=== PATIENT | male | born 1965 | race Caucasian/White ===

== ENCOUNTER 2018-06-23 16:09 | Emergency (ER) | payer OTHER ==
[~2018-06-23] VITALS: Ht 185.4 cm; Wt 151.9 kg
[~2018-06-23 16:09] MED LIST: ALBU90OI6 PO; ALIS150T PO; AMLO10 PO; ASPI325; ASPI325 PO; BETA.05TC TOP; BISA5EC PO; BUME2 PO; CARV25 PO; CEPH500 PO; CLON.2; CLON.2 PO; CLON.3 PO; CODGUAEL PO; Cleocin HCl150 MG PO; Cleocin HCl300 MG PO; DOCU100 PO; EDARBI; FURO40 PO; HYDACE5 PO; HYDR10 PO; HYDR1TAB94; HYDR1TAB94 PO; Isosorbide Mono60 MG PO; KETO10 PO; LAVAP17G PO; NAPR500 PO; NICO14TP TOP; Norco 10-325 T1 EACH PO; OLME20; OXYACE5T PO; PANT40 PO; PENVK500 PO; POTA10T PO; PREG75 PO; PROACE100 PO; PROP20 PO; Percocet 10-321 EACH PO; RAMI5; RXHYD5325 PO; RXPROACE PO; SPIR25 PO; SULTRIDS PO; [UNRECOGNIZED DRUG - REMARK]
[2018-06-23 17:46] LABS: BASOPHILS ABSOLUTE AUTO 0.04 K/mm3 (0.00-0.23); BASOPHILS PERCENT AUTO 0 % (0-2); EOSINOPHILS ABSOLUTE AUTO 0.18 K/mm3 (0.00-0.68); EOSINOPHILS PERCENT AUTO 1 % (0-6); Hematocrit 52.3 % (37.0-53.0); Hemoglobin 17.3 g/dL (13.5-17.5); IMMATURE GRAN ABSOLUTE AUTO 0.06 K/mm3 (0.00-0.10); IMMATURE GRAN PERCENT AUTO 0 % (0-1); LYMPHOCYTES ABSOLUTE AUTO 1.54 K/mm3 (0.84-5.20); LYMPHOCYTES PERCENT AUTO 11 % (21-46); MONOCYTES PERCENT AUTO 12 % (4-13); Mean Corpuscular HGB Conc 33.1 g/dL (31.5-36.5); Mean Corpuscular Volume 94 fL (80-100); Mean Platelet Volume 12.2 fL (9.1-12.4); NEUTROPHILS ABSOLUTE AUTO 11.16 K/mm3 (1.96-9.15); NEUTROPHILS PERCENT AUTO 76 % (41-73); Platelet Count 211 K/mm3 (150-400); RDW Coefficient Variation 12.9 % (11.7-14.2); RDW Standard Deviation 44.5 fL (35.1-46.3); Red Blood Cell Count 5.58 M/mm3 (4.30-5.90); White Blood Cell Count 14.68 K/mm3 (4.00-11.30)
[2018-06-23 18:03] LABS: Alanine Aminotransfer (ALT/SGP 22 U/L (12-78); Albumin, Blood 3.5 g/dL (3.4-5.0); Albumin/Globulin Ratio 0.8 (0.8-1.8); Alk Phos 96 U/L (50-136); Anion Gap 8 mmol/L (6-16); Aspartate Aminotrans (AST/SGOT 16 U/L (12-37); Bilirubin, Total 0.7 mg/dL (0.1-1.0); Blood Urea Nitrogen 10 mg/dL (8-24); Bun/Creatinine Ratio 7.4 (12.0-20.0); CO2, Blood 24 mmol/L (21-32); Chloride, Blood 104 mmol/L (98-108); Creatinine, Blood 1.35 mg/dL (0.60-1.20); Globulin, Blood 4.2 g/dL (2.2-4.0); Glomerular Filtration Rate 59 (60-); Glucose, Blood 110 mg/dL (70-99); Sodium, Blood 136 mmol/L (136-145); Total Protein, Blood 7.7 g/dL (6.4-8.2); Troponin I <0.015 ng/mL (0.000-0.040)
[2018-06-23] MEDS ORDERED: HYDR1TAB94 PO (19:36)
[2018-06-23 20:04] LABS: International Normalized Ratio 2.28; Prothrombin Time Results 22.4 Sec (9.7-11.5)
== END 2018-06-23 19:44 | disposition home or self-care (01) ==
LOC: ER 16:09
PROVIDERS: Physician Assistant
DX: R07.81 Pleurodynia (principal); Z79.899 Other long term (current) drug therapy; Z79.82 Long term (current) use of aspirin; I11.0 Hypertensive heart disease with heart failure; I50.9 Heart failure, unspecified; I48.91 Unspecified atrial fibrillation; F17.210 Nicotine dependence, cigarettes, uncomplicated
CPT/HCPCS: 36415; 71046; 80053; 84484; 85025; 85610; 93005; 93010; 96372; 99284-25; J1885

== ENCOUNTER 2018-07-04 23:33 | Observation (INO) | payer OTHER ==
[~2018-07-04] VITALS: Ht 185.4 cm; Wt 130.2 kg
[2018-07-05 01:38] LABS: Source, Urine Clean Catch
[2018-07-05 01:40] LABS: Bilirubin, Urine Neg (Neg); Blood, Urine Neg (Neg); Glucose Qualitative, Urine Neg (Neg); Ketones, Urine Neg (Neg); Leukocyte Esterase, Urine Neg (Neg); Nitrite, Urine Neg (Neg); Protein, Urine 1+ (Neg); Urobilinogen, Urine NORM (Normal)
[2018-07-05 01:44] LABS: Appearance, Urine Clear (Clear); Color, Urine Yellow (P-Yellow)
[2018-07-05 01:50] LABS: BASOPHILS ABSOLUTE AUTO 0.06 K/mm3 (0.00-0.23); BASOPHILS PERCENT AUTO 1 % (0-2); EOSINOPHILS ABSOLUTE AUTO 0.37 K/mm3 (0.00-0.68); EOSINOPHILS PERCENT AUTO 3 % (0-6); Hematocrit 52.7 % (37.0-53.0); Hemoglobin 17.6 g/dL (13.5-17.5); IMMATURE GRAN ABSOLUTE AUTO 0.14 K/mm3 (0.00-0.10); IMMATURE GRAN PERCENT AUTO 1 % (0-1); LYMPHOCYTES ABSOLUTE AUTO 2.49 K/mm3 (0.84-5.20); LYMPHOCYTES PERCENT AUTO 19 % (21-46); MONOCYTES ABSOLUTE AUTO 1.09 K/mm3 (0.16-1.47); MONOCYTES PERCENT AUTO 8 % (4-13); Mean Corpuscular HGB 30.8 pg (26.0-34.0); Mean Corpuscular HGB Conc 33.4 g/dL (31.5-36.5); Mean Corpuscular Volume 92 fL (80-100); NEUTROPHILS ABSOLUTE AUTO 8.95 K/mm3 (1.96-9.15); NEUTROPHILS PERCENT AUTO 68 % (41-73); Platelet Count 227 K/mm3 (150-400); RDW Standard Deviation 43.8 fL (35.1-46.3); Red Blood Cell Count 5.72 M/mm3 (4.30-5.90)
[2018-07-05 01:51] LABS: U Amphetamine Screen Not Detected; U Barbituate Screen Not Detected; U Benzodiazapine Screen DETECTED; U Buprenorphine Screen Not Detected; U Cannabinoids Screen Not Detected; U Cocaine Screen Not Detected; U Methadone Screen Not Detected; U Methamphetamine Screen Not Detected; U Opiates Screen Not Detected; U Oxycodone Screen Not Detected; U Phencyclidine Screen Not Detected; U Propoxyphene Screen Not Detected
[2018-07-05 01:53] LABS: Alanine Aminotransfer (ALT/SGP 23 U/L (12-78); Albumin, Blood 3.4 g/dL (3.4-5.0); Albumin/Globulin Ratio 0.8 (0.8-1.8); Alk Phos 114 U/L (50-136); Anion Gap 11 mmol/L (6-16); Aspartate Aminotrans (AST/SGOT 28 U/L (12-37); Bilirubin, Total 0.2 mg/dL (0.1-1.0); Blood Urea Nitrogen 17 mg/dL (8-24); Bun/Creatinine Ratio 16.3 (12.0-20.0); CO2, Blood 22 mmol/L (21-32); Calcium, Blood 8.7 mg/dL (8.5-10.1); Chloride, Blood 104 mmol/L (98-108); Creatinine, Blood 1.04 mg/dL (0.60-1.20); Ethanol (Alcohol), Blood, Med 146 mg/dL; Globulin, Blood 4.3 g/dL (2.2-4.0); Glomerular Filtration Rate >60 (60-); Glucose, Blood 111 mg/dL (70-99); Potassium, Blood 4.1 mmol/L (3.5-5.5); Salicylate 2.4 mg/dL (2.8-20.0); Sodium, Blood 137 mmol/L (136-145); Total Protein, Blood 7.7 g/dL (6.4-8.2)
[2018-07-05 01:57] LABS: Acetaminophen, Random <2.0 ug/mL (10.0-30.0)
[2018-07-05] MEDS ORDERED: FURO80 PO (10:16)
[2018-07-05] MEDS ORDERED: TRAM50 PO (10:16)
== END 2018-07-05 10:46 | disposition home or self-care (01) ==
LOC: ER 23:33 → EOR 07-05 02:40
PROVIDERS: ADMIT Emergency Medicine
DX: R45.851 Suicidal ideations (principal); F10.129 Alcohol abuse with intoxication, unspecified; F43.10 Post-traumatic stress disorder, unspecified; I11.0 Hypertensive heart disease with heart failure; I50.9 Heart failure, unspecified; F17.210 Nicotine dependence, cigarettes, uncomplicated; Z79.899 Other long term (current) drug therapy
CPT/HCPCS: 36415; 80053; 84443; 85025; 96372; 99285-25; G0378; G0480; J1200; J1630; J2060

== ENCOUNTER → 2019-01-23 | Outpatient (CLI) | payer MEDICARE, OTHER ==
[~2019-01-23] MED LIST changes: +FURO80 PO; +TRAM50 PO
[2019-01-23 16:09] LABS: Percent Saturation 29.9 % (20.0-50.0)
== END | disposition home or self-care (01) ==
LOC: LAB 13:09 → LAB SHORT 13:09
PROVIDERS: Internal Medicine Hematology & Oncology
DX: I73.1 Thromboangiitis obliterans [Buerger's disease] (principal); D75.1 Secondary polycythemia; K92.1 Melena
CPT/HCPCS: 83540; 83550

== ENCOUNTER → 2019-05-03 | Outpatient (CLI) | payer MEDICARE, OTHER ==
[2019-05-03 15:01] LABS: International Normalized Ratio 1.38; Prothrombin Time Results 14.5 Sec (9.7-11.5)
== END | disposition home or self-care (01) ==
LOC: LAB SHORT 13:16 → LAB 13:16
PROVIDERS: Internal Medicine Hematology & Oncology
DX: I11.9 Hypertensive heart disease without heart failure (principal); I48.0 Paroxysmal atrial fibrillation; D75.1 Secondary polycythemia; I73.1 Thromboangiitis obliterans [Buerger's disease]
CPT/HCPCS: 85610

== ENCOUNTER 2019-11-26 03:22 | Inpatient (IN) | payer MEDICARE, OTHER ==
[~2019-11-26] VITALS: Ht 182.9 cm; Wt 123.0 kg
[2019-11-26 03:37] LABS: BASOPHILS ABSOLUTE AUTO 0.04 K/mm3 (0.00-0.23); BASOPHILS PERCENT AUTO 0 % (0-2); EOSINOPHILS ABSOLUTE AUTO 0.26 K/mm3 (0.00-0.68); EOSINOPHILS PERCENT AUTO 2 % (0-6); Hematocrit 49.3 % (37.0-53.0); Hemoglobin 16.9 g/dL (13.5-17.5); IMMATURE GRAN ABSOLUTE AUTO 0.05 K/mm3 (0.00-0.10); IMMATURE GRAN PERCENT AUTO 0 % (0-1); LYMPHOCYTES ABSOLUTE AUTO 1.67 K/mm3 (0.84-5.20); LYMPHOCYTES PERCENT AUTO 14 % (21-46); MONOCYTES ABSOLUTE AUTO 1.01 K/mm3 (0.16-1.47); MONOCYTES PERCENT AUTO 9 % (4-13); Mean Corpuscular HGB 31.2 pg (26.0-34.0); Mean Corpuscular HGB Conc 34.3 g/dL (31.5-36.5); Mean Corpuscular Volume 91 fL (80-100); Mean Platelet Volume 12.4 fL (9.1-12.4); NEUTROPHILS ABSOLUTE AUTO 8.81 K/mm3 (1.96-9.15); NEUTROPHILS PERCENT AUTO 75 % (41-73); Platelet Count 188 K/mm3 (150-400); RDW Coefficient Variation 14.2 % (11.7-14.2); RDW Standard Deviation 47.4 fL (35.1-46.3); Red Blood Cell Count 5.42 M/mm3 (4.30-5.90); White Blood Cell Count 11.84 K/mm3 (4.00-11.30)
[2019-11-26 03:40] LABS: Calcium, Ionized (POC) 1.11 mmol/L (1.10-1.46); Chloride (POC) 99 mmol/L (98-108); Glucose (ISTAT POC) 135 mg/dL (70-99); Potassium (POC) 2.9 mmol/L (3.5-5.5); Sodium (POC) 141 mmol/L (135-148); Total CO2 (POC) 31 mmol/L (21-32)
[2019-11-26 03:52] LABS: International Normalized Ratio 1.04; Prothrombin Time Results 11.1 Sec (9.7-11.5)
[2019-11-26 04:25] LABS: Alanine Aminotransfer (ALT/SGP 17 U/L (12-78); Albumin, Blood 3.1 g/dL (3.4-5.0); Albumin/Globulin Ratio 0.7 (0.8-1.8); Alk Phos 85 U/L (50-136); Anion Gap 6 mmol/L (6-16); Aspartate Aminotrans (AST/SGOT 28 U/L (12-37); Blood Urea Nitrogen 13 mg/dL (8-24); Bun/Creatinine Ratio 14.2 (12.0-20.0); CO2, Blood 30 mmol/L (21-32); Calcium, Blood 9.2 mg/dL (8.5-10.1); Chloride, Blood 104 mmol/L (98-108); Creatinine, Blood 0.92 mg/dL (0.60-1.20); Globulin, Blood 4.2 g/dL (2.2-4.0); Glomerular Filtration Rate >60 (60-); Glucose, Blood 129 mg/dL (70-99); Sodium, Blood 140 mmol/L (136-145); Total Protein, Blood 7.3 g/dL (6.4-8.2)
--- NOTE | 2019-11-26 07:30 | NUR ---
ASSUMED CARE OF PT @0700, REPORT FROM MARIALUISA OBRIEN. PT ADMITTED FOR A CVA. ARRIVES INTUBATED AND SEDATED. VENT SETTINGS AC:16/500/60. FENTANYLY GTT @50MCG/HR. VERSED 7MG/HR. PT AGITATED, PULLING ON RESTRAINTS. MOVEMENT ABSENT ON RIGHT SIDE, NORMAL STRENGTH ON LEFT. PT RESPONDS TO PAINFUL STIMULI, NOT FOLLOWING COMMANDS. WITHDRAWLS FROM CARE. PUPILS 2MM, EQUAL AND REACTIVE, BILATERAL LEFT UPWARD GAZE. COUGH AND GAG REFLEX PRESENT. A-FLUTTER ON THE MONITOR IN THE 80'S-90'S. WILL ADDRESS SEDATION W/ CATTLE BROKER. LS COARSE ON R, CLEAR ON LEFT. OGT LIS. SCANT, BROWN EMESIS OUT. KERR CATHETER PATENT AND DRAINING TO GRAVITY. CLEAR YELLOW URINE OUT. WILL ADDRESS BP W/CATTLE BROKER. WILL CONTINUE TO MONITOR.
--- NOTE | 2019-11-26 07:35 | NUR ---
pt up to icu 13 from ed via gurney. will get pt settled and give report to oncoming rn
[2019-11-26 09:20] LABS: CHOL/HDL RATIO 6.7; Cholesterol 181 mg/dL (50-200); HDL Cholesterol 27 mg/dL (>39); LDL/HDL RATIO 4.5; Low Density Lipoprotein Chol 120 mg/dL (0-110); Triglycerides 168 mg/dL (30-160); Very Low Density Lipoprot Chol 33 mg/dL (6-32)
--- NOTE | 2019-11-26 12:45 | NUR ---
eCHOCARDIOGRAM USING 9.0ML OF AGITATED SALINE CONTRAST PERFORMED.
--- NOTE | 2019-11-26 14:08 | NUR ---
Review of pt with staff. his girlfriend is calling his partner and attemtping to find son. Will follow up with her. google search show possible criminal record and facebook page no family found on social media. Will follow up with myke if family not found.
--- NOTE | 2019-11-26 16:26 | NUR ---
met with his girlfreind to review his needs and prognosis. Review o CVA and rehab and the possible differnet trajectories. She stated she had no idea she though he would just hopefully get better and they would talke all the machines off of him. She called his son he spoke with his sone last week and she is hopsing he will call her and be decision maker. She states the best person is his ex gilfriend of many years who knows him best. advised her that if no one will accept being a decision maker we will do an ethic consult for phsycian support in cdecision making. Encouraged her to rally the troops and get them to sep up. offered and help I could.
--- NOTE | 2019-11-26 18:33 | NUR ---
SHIFT SUMMARY PT CONTINUES TO BE RESPONSIVE TO PAINFUL STIMULI ONLY, NOT FOLLOWING COMMANDS. WITHDRAWLS FROM CARE, BUT LESS AGITATED. PUPILS 2MM, EQUAL AND REACTIVE. VENT SETTINGS AC:16/500/30. LSC BUT DIMINISHED IN THE LL BILATERALLY. FENTANYL AND VERSED DC'D, PRECEDEX TITRATION INITIATED PER PROTOCOL. A-FLUTTER ON THE MONITOR IN THE 70'S-90'S. VHP INITIATED @20ML/HR. FRIEDA (GABRIELA) @ BEDSIDE TODAY. PALLIATIVE CARE CONTACTED ESTRANGED DAUGHTER AND SON, BOTH ADDED TO RELEASE OF INFORMATION LIST c CODE WORD PER RAVIN IN PALLIATIVE. VSS, WILL CONTINUE TO MONITOR. WILL REPORT TO ONCOMING NURSE.
--- NOTE | 2019-11-26 20:00 | NUR ---
ASSESSMENT/ASSUMED CARE PT INTUBATED AND ON MECH VENT. PT MOVING LEFT HAND/ARM AND LEFT FOOT. RIGHT SIDE FLACCID. PT NOT FOLLOWING INSTRUCTIONS. LUNGS COARSE AND DECREASED IN THE BASES. SUCTIONED WHITE SRECTIONS VIA ET TUBE. LUNGS THAN CLEAR AND DECREASED IN THE BASES. HEART RATE IRREGULAR. BP STABLE. BT+ ABD SOFT. OG WITH TUBE FEED VITAL HP AT 20 ML/HR RESIDUAL ZERO. INCREASED TUBE FEED TO 30 ML/HR. WATER FLUSHING 30 ML Q4HR. IV 18G TO LEFT AC AND 18G TO LEFT HAND SALINE LOCKED, BOTH SITES CLEAR AND FLUSHED WITHOUT DIFFICULTY. IV 20G TO RIGHT FOREARM WITH PRECEDEX AT 0.5 MCQ/KG/HR. KERR CATH PATENT DRAINING GISELA YELLOW URINE. BILAT SOFT WRIST RESTRAINTS ON AND LEFT ANKLE RESTRAINT ON. ORAL CARE DONE AND PT REPOSITIONED.
--- NOTE | 2019-11-26 23:15 | NUR ---
VENT CHANGE PT VENT SETTINGS CHANGED TO PS 5 PEEP 5 DUE TO ASYNCHRONOUS RESP BY RT. PT TOLERATING WELL. INCREASED TV NOTED WITH PS. DR COLLINS NOTIED AND AGREED WITH CHANGES
--- NOTE | 2019-11-27 00:54 | NUR ---
TEMP TEMP UP TO 101.1. FAN ON PT, BLANKETS REMOVED, ICE PACKS BEHIND NECK, UNDERARMS AND IN GROIN.
[2019-11-27 03:41] LABS: BASOPHILS ABSOLUTE AUTO 0.03 K/mm3 (0.00-0.23); BASOPHILS PERCENT AUTO 0 % (0-2); EOSINOPHILS ABSOLUTE AUTO 0.03 K/mm3 (0.00-0.68); EOSINOPHILS PERCENT AUTO 0 % (0-6); Hematocrit 49.6 % (37.0-53.0); Hemoglobin 16.3 g/dL (13.5-17.5); IMMATURE GRAN ABSOLUTE AUTO 0.05 K/mm3 (0.00-0.10); IMMATURE GRAN PERCENT AUTO 0 % (0-1); LYMPHOCYTES ABSOLUTE AUTO 1.16 K/mm3 (0.84-5.20); LYMPHOCYTES PERCENT AUTO 8 % (21-46); MONOCYTES ABSOLUTE AUTO 1.41 K/mm3 (0.16-1.47); MONOCYTES PERCENT AUTO 10 % (4-13); Mean Corpuscular HGB 30.5 pg (26.0-34.0); Mean Corpuscular HGB Conc 32.9 g/dL (31.5-36.5); Mean Corpuscular Volume 93 fL (80-100); Mean Platelet Volume 12.7 fL (9.1-12.4); NEUTROPHILS ABSOLUTE AUTO 11.94 K/mm3 (1.96-9.15); NEUTROPHILS PERCENT AUTO 82 % (41-73); Platelet Count 156 K/mm3 (150-400); RDW Coefficient Variation 14.2 % (11.7-14.2); RDW Standard Deviation 48.7 fL (35.1-46.3); Red Blood Cell Count 5.35 M/mm3 (4.30-5.90); White Blood Cell Count 14.62 K/mm3 (4.00-11.30)
[2019-11-27 04:01] LABS: Anion Gap 6 mmol/L (6-16); Blood Urea Nitrogen 17 mg/dL (8-24); Bun/Creatinine Ratio 14.3 (12.0-20.0); CO2, Blood 29 mmol/L (21-32); Calcium, Blood 9.1 mg/dL (8.5-10.1); Chloride, Blood 110 mmol/L (98-108); Creatinine, Blood 1.19 mg/dL (0.60-1.20); Glomerular Filtration Rate >60 (60-); Glucose, Blood 124 mg/dL (70-99); Phosphorus, Blood 2.4 mg/dL (2.5-4.9); Potassium, Blood 3.1 mmol/L (3.5-5.5); Sodium, Blood 145 mmol/L (136-145)
--- NOTE | 2019-11-27 05:49 | NUR ---
SGIFT SUMMARY PT CONT INTUBATED AND ON [facility] VENT. VENT SETTINGS CHANGED DURING THE NIGHT TO PC 5 PEEP 5 FIO2 30%. LUNGS COARSE UNTIL SUCTIONED VIA ET TUBE THAN CLEAR AND DECREASED IN THE BASES. HEART RATE CONT IRREGULAR-AFIB. BP STABLE. PT OPENING EYES TO VERBAL STIMULI AND MOVING LEFT ARM AND LEFT WITH REPOSITONING. RIGHT SIDE CONT FLACCID. OG WITH TUBE FEED. RESIDUALS ZERO. INCREASED TUBE FEED UP TO 40 ML/HR DURING THE NIGHT. TURNING Q2HR. TEMP 101.1, MED WITH TYLENOL, ICE PACKS TO BACK OF NECK, UNDER ARMS AND IN GROIN, BLANKETS REMOVED AND FAN ON. NO CHANGE TO TEMP. BILAT SOFT WRIST RESTRAINTS AND LEFT ANKLE RESTRAINT ON. PT NOT FOLLOWING INSTRUCTIONS. REPORT TO ON COMING NURSE
--- NOTE | 2019-11-27 08:00 | NUR ---
Received report from Andie OBRIEN. Patient sedated and intubated in bed and HOB 30 degrees. He is able to follow commands to left side and no movement to right. He is intubated with 8.0 ET and 26 cm at lips, his settings are Spon. mode PS 5, FiO2 30%, PEEP 5.0 and sats 95%. He has three IV's : 18ga LH, 18ga LAC, 20ga RFA, all dressing intact and sites WNL's He has Precedex 0.5 mcg/kg/hr in LH, all other IV's flushed and SL'd. He has 16Fr. temp vang draining rao gravity barry colored urine with temp of 101.5.
--- NOTE | 2019-11-27 09:30 | NUR ---
patient has been doing well on spon. mode and sats reamin >90%. Still same gtt and vent settings. He has remained on Precedex at 0.5 mcg/kg/hr and remains calm. still following minimal commands. Dr Dawson in room and assessed, writing new orders. No other significant changes.
--- NOTE | 2019-11-27 11:30 | NUR ---
patient girlfriend and aunt at bedside. No changes in gtt or vent setting. patient tolerating spon. mode and sats >90%. Dr Dawson talked about possible extubation.
--- NOTE | 2019-11-27 12:14 | NUR ---
pt on precidex spoke with his girlfriend on plan of care.
--- NOTE | 2019-11-27 13:30 | NUR ---
Removed left ankle and right wrist and feel safe that5 left keg has no danger and he moves appropriate and have not seen any movemet from right upper extremity. No vent setting changes sats >90%. Precedex remains at the same 0.5 mcg/kg/hr and is appropriate for keeping calm.
--- NOTE | 2019-11-27 16:55 | NUR ---
RE PACKED ALL ICE PACKS AND UNCOVERED PATIENT WITH FAN AND TEMP HAS DROPPED TP 100.8. NO VENT OR GTT SETTINS AND PATIENT DOING WELL. wHEN DOING ORAL CARE AND PLACE ICE PACK HE LOOKED UP AND HAD HIM SQUEEZE HAND AND HE DID LIGHTLY. NO OTHER SIGNIFICANT OTHER CHANGES.
--- NOTE | 2019-11-27 18:00 | NUR ---
Repositioned patient and applied wet towel on toso and kept fan on him. He awakens with positioning or loud verbal stimuli. He remains intubated and sedated. Vent setting Spon. Mode PS 5, FiO2 30%, PEEP 5.0 and sats 94%. he remains sedated on Precedex 0.5 mcg/kg/hr and tolerates well, his rate increased and added fentanyl as per MAR and rate reduced to 20. Suctioned ET and looked light thompson like tube feeds but still no residual and does not pull even with OG repositioned. and sat up to greater thn 20 degrees. He is resting quietly.
--- NOTE | 2019-11-27 18:33 | NUR ---
Silent prayer and loving presence provided. Pt opened eyes briefly as I washed his face and hair. No family present. I will remain available.
--- NOTE | 2019-11-27 23:06 | NUR ---
ASSUMED CARE OF PT, REPORT RCV'D FROM MICAH VITALE. PT OPENS EYES TO SOUNDS, PUPILS 2 MM BRISK, UPWARD GAZE. PT MOVES LUE/LLE, RIGHT SIDE REMAINS FLACCID. LEFT SIDE SOFT WRIST RESTRAINT IN PLACE TO PREVENT ACCIDENTAL SELF-EXTUBATION. TF PLACED ON STANDBY D/T FORMULA BEING SUCTIONED FROM ETT. PER DAYSHIFT NURSE 0 RESIDUALS FROM OGT, DAYSHIFT NURSE REPOSITIONED OGT AND CONFIRMED PLACEMENT. RESPIRATORY THERAPY ADDED AIR TO CUFF WITHOUT IMPROVEMENT. PRECEDEX 0.5 MCG/KG/HR FOR SEDATION. SEE FULL SHIFT ASSESSMENT.
[2019-11-27 23:56] LABS: Source, Urine Catheter
[2019-11-28] LABS: Bilirubin, Urine Neg (Neg); Blood, Urine 2+ (Neg); Glucose Qualitative, Urine Neg (Neg); Ketones, Urine Neg (Neg); Leukocyte Esterase, Urine Neg (Neg); Nitrite, Urine Neg (Neg); Protein, Urine 3+ (Neg); Urobilinogen, Urine 1+ (Normal)
[2019-11-28 01:13] LABS: Appearance, Urine Hazy (Clear); Color, Urine Yellow (P-Yellow)
[2019-11-28 01:14] LABS: Bacteria Rare /hpf; Red Blood Cells, Urine 0-2 /hpf (0-2); Squamous Epithelial Cells Not Seen /hpf (Few); White Blood Cells, Urine 0-2 /hpf (0-5)
[2019-11-28 03:52] LABS: BASOPHILS ABSOLUTE AUTO 0.03 K/mm3 (0.00-0.23); BASOPHILS PERCENT AUTO 0 % (0-2); EOSINOPHILS ABSOLUTE AUTO 0.01 K/mm3 (0.00-0.68); EOSINOPHILS PERCENT AUTO 0 % (0-6); Hematocrit 48.1 % (37.0-53.0); IMMATURE GRAN ABSOLUTE AUTO 0.06 K/mm3 (0.00-0.10); IMMATURE GRAN PERCENT AUTO 0 % (0-1); LYMPHOCYTES ABSOLUTE AUTO 1.16 K/mm3 (0.84-5.20); LYMPHOCYTES PERCENT AUTO 7 % (21-46); MONOCYTES ABSOLUTE AUTO 1.49 K/mm3 (0.16-1.47); MONOCYTES PERCENT AUTO 8 % (4-13); Mean Corpuscular HGB 30.7 pg (26.0-34.0); Mean Corpuscular HGB Conc 33.3 g/dL (31.5-36.5); Mean Corpuscular Volume 92 fL (80-100); Mean Platelet Volume 12.8 fL (9.1-12.4); NEUTROPHILS ABSOLUTE AUTO 14.94 K/mm3 (1.96-9.15); NEUTROPHILS PERCENT AUTO 84 % (41-73); Platelet Count 143 K/mm3 (150-400); RDW Coefficient Variation 14.1 % (11.7-14.2); RDW Standard Deviation 47.9 fL (35.1-46.3); Red Blood Cell Count 5.21 M/mm3 (4.30-5.90); White Blood Cell Count 17.69 K/mm3 (4.00-11.30)
[2019-11-28 04:20] LABS: Anion Gap 3 mmol/L (6-16); Blood Urea Nitrogen 20 mg/dL (8-24); Bun/Creatinine Ratio 21.2 (12.0-20.0); CO2, Blood 30 mmol/L (21-32); Calcium, Blood 8.6 mg/dL (8.5-10.1); Chloride, Blood 110 mmol/L (98-108); Creatinine, Blood 0.95 mg/dL (0.60-1.20); Glomerular Filtration Rate >60 (60-); Glucose, Blood 117 mg/dL (70-99); Phosphorus, Blood 3.1 mg/dL (2.5-4.9); Potassium, Blood 3.1 mmol/L (3.5-5.5); Sodium, Blood 143 mmol/L (136-145)
--- NOTE | 2019-11-28 06:43 | NUR ---
SHIFT SUMMARY NO ACUTE CHANGES OVERNIGHT. VENT SETTINGS REMAIN UNCHANGED. PRECEDEX 0.5 MCG/KG/HR FOR SEDATION. LUNG SOUNDS UNCHANGED, SMALL AMOUNT OF THICK STARK SECRETIONS T/O SHIFT. TF REMAINS ON STANDBY. PT OPENS EYES SPONTANEOUSLY AND TO SOUND, FAILS TO FOLLOW COMMANDS. MOVES LUE/LLE, NO MOVEMENT FROM RIGHT UPPER OR LOWER EXTREMITY. WILL REPORT TO DAYSHIFT NURSE.
--- NOTE | 2019-11-28 07:46 | NUR ---
Received report from Pio OBRIEN. Patient intubated and sedated with 8.0 ET, 26cm at lips with vent settings Spon. mode, PS 5.0, FiO2 30%, PEEP 5.0 and sats 94%. When at bedside he opens eyes and stairs at yo and follows minimal fommands and lightly squeezes when asked. he moved left disal extremities and can see occassional RLE gross movements. He has 16FR temp vang draining top gravity barry colored urine and temp 100.9 with ice packs and fan. He has three distal IV's: 18ga LAC, LH, and RFA, all dressings intact and site WNL's and RFA IV is infusing Precedex at 0.5mcg/kg/hr and sedated well. He has first two toes on right foot missing previous surgery
--- NOTE | 2019-11-28 09:30 | NUR ---
Dr Dawson by and assessed and plan is to extubate. No vent changes or gtt's. Plan is to keep Precedex at 0.5mcg/kg/hr. patient has some dysphagia and follows simple commands. No new neuro chnages.
--- NOTE | 2019-11-28 11:30 | NUR ---
Extubated and restraints removed at 1010 and he was placed on 4L O2 via NC and sats >90%. Precedex remains on at 0.5 mcg/kg/hr. Patient coarse sounds and clears with suctioning. They are about to start CPT. Patient continues caro non verbal even after extubation. Girlfriend at bedside. Still flaccid to right side. He remains not very interactive with care.
--- NOTE | 2019-11-28 13:30 | NUR ---
Patient doing well on 4L O2 via NC. He is really unable to clear secretions and needs deep suctioning and is milky thompson/white, he opens mouth and tolerates well. Godfrey remains patent and has dark barry urine. He moves left side frequently and remains non verbal and flaccid to right side.
--- NOTE | 2019-11-28 15:52 | NUR ---
medicated with sedation adjunct as per JUN. Precedex remains at 0.5 mcg/kg/hr and NS TKO. He remains on 4L O2 via NC and sats 96%. Went to CT for head w/o contrast. He continues to left side and non verbal and flaccid right side.
--- NOTE | 2019-11-28 17:50 | NUR ---
Continue to suction milky thompson/white thick secretion from back of throat, tolerates well. He remains on 4L O2 via NC and sats >90%. He remains om Precedex at 0.5 mcg/kg/hr and also medicated with a little Fentanyl as per mar as RR increased. Patient remains non verbal and unable to clear secretions, frequent suctioning. Continues with no movement to right side and frequent fine movement
[2019-11-29 04:09] LABS: BASOPHILS ABSOLUTE AUTO 0.03 K/mm3 (0.00-0.23); BASOPHILS PERCENT AUTO 0 % (0-2); EOSINOPHILS ABSOLUTE AUTO 0.01 K/mm3 (0.00-0.68); EOSINOPHILS PERCENT AUTO 0 % (0-6); Hematocrit 48.8 % (37.0-53.0); IMMATURE GRAN ABSOLUTE AUTO 0.05 K/mm3 (0.00-0.10); IMMATURE GRAN PERCENT AUTO 0 % (0-1); LYMPHOCYTES ABSOLUTE AUTO 1.13 K/mm3 (0.84-5.20); LYMPHOCYTES PERCENT AUTO 7 % (21-46); MONOCYTES ABSOLUTE AUTO 1.52 K/mm3 (0.16-1.47); MONOCYTES PERCENT AUTO 9 % (4-13); Mean Corpuscular HGB 30.9 pg (26.0-34.0); Mean Corpuscular HGB Conc 32.8 g/dL (31.5-36.5); Mean Corpuscular Volume 94 fL (80-100); Mean Platelet Volume 12.6 fL (9.1-12.4); NEUTROPHILS PERCENT AUTO 83 % (41-73); Platelet Count 153 K/mm3 (150-400); RDW Coefficient Variation 14.3 % (11.7-14.2); RDW Standard Deviation 49.2 fL (35.1-46.3); Red Blood Cell Count 5.17 M/mm3 (4.30-5.90); White Blood Cell Count 16.14 K/mm3 (4.00-11.30)
[2019-11-29 04:29] LABS: Albumin, Blood 2.8 g/dL (3.4-5.0); Anion Gap 6 mmol/L (6-16); Blood Urea Nitrogen 24 mg/dL (8-24); Bun/Creatinine Ratio 26.4 (12.0-20.0); CO2, Blood 29 mmol/L (21-32); Calcium, Blood 8.8 mg/dL (8.5-10.1); Chloride, Blood 113 mmol/L (98-108); Creatinine, Blood 0.91 mg/dL (0.60-1.20); Glomerular Filtration Rate >60 (60-); Glucose, Blood 104 mg/dL (70-99); Phosphorus, Blood 2.6 mg/dL (2.5-4.9); Potassium, Blood 3.3 mmol/L (3.5-5.5); Sodium, Blood 148 mmol/L (136-145)
--- NOTE | 2019-11-29 04:38 | NUR ---
SHIFT SUMMARY NO ACUTE CHANGES TO NOTE OVERNIGHT. NEURO STATUS REMAINS UNCHANGED, FLACCID RIGHT SIDE, NONVERBAL, NOT FOLLOWING COMMANDS. PERRLA. VSS. WILL CONTINUE TO MONITOR.
--- NOTE | 2019-11-29 07:20 | NUR ---
ASSUMED CARE BEDSIDE REPORT RECIEVED. PT IS LAYING IN BED AWAKE, EYES OPEN, TRACKING UPON ENTERING ROOM. PT IS NONVERBAL. PT ABLE TO SQUEEZE LEFT HAND UPON COMMAND AND SPONTANEOUSLY MOVE LEFT UPPER EXTREMITY. BOTH RIGHT EXTREMITIES ARE FLACCID. MINIMAL GROSS MOVEMENT NOTED TO LEFT LOWER EXTREMITY. PT WITH GOOD COUGH AND GAG. DEEP ORAL SUCTION NEEDED TO CLEAR SECRETIONS. VITAL SIGNS STABLE. PT ON 3L O2 NC. KERR IN PLACE WITH YELLOW URINE OUTPUT NOTED. WILL CONTINUE TO MONITOR.
--- NOTE | 2019-11-29 18:24 | NUR ---
SHIFT SUMMARY PT DOING WELL THIS SHIFT. PT HAS REMAINED AWAKE AND ALERT THROUGHOUT THE SHIFT. PT RESPONDS TO QUESTIONS WITH SUBTLE FACIAL CUE'S OR GRIMMACES. PT REMAINS NONVERBAL. PT CONTINUES TO MOVE LEFT UPPER EXTREMITY SPONTANEOUSLY, AND RIGHT EXTREMITIES REMAIN FLACCID. PT ASSISTING WITH TURNS ABLE WITH LEFT UPPER EXTREMITY. VITAL SIGNS REMAIN STABLE. PT TITRATED DOWN TO 2L O2 NC. PRECEDEX HAS REMAINED ON STANDBY THROUGHOUT THE SHIFT. PT HAS REMAINED CALM/COOPERATIVE. CLINIMIX INFUSING AT 125 ML/HR. KERR REMAINS IN PLACE WITH GOOD URINE OUTPUT THIS SHIFT. PT WITH FAMILY VISIT TODAY. WILL CONTINUE TO MONITOR AND REPORT OFF TO ONCOMING RN.
[2019-11-30 04:04] LABS: BASOPHILS ABSOLUTE AUTO 0.07 K/mm3 (0.00-0.23); BASOPHILS PERCENT AUTO 0 % (0-2); EOSINOPHILS ABSOLUTE AUTO 0.13 K/mm3 (0.00-0.68); EOSINOPHILS PERCENT AUTO 1 % (0-6); Hematocrit 52.3 % (37.0-53.0); IMMATURE GRAN ABSOLUTE AUTO 0.05 K/mm3 (0.00-0.10); IMMATURE GRAN PERCENT AUTO 0 % (0-1); LYMPHOCYTES ABSOLUTE AUTO 0.82 K/mm3 (0.84-5.20); LYMPHOCYTES PERCENT AUTO 5 % (21-46); MONOCYTES ABSOLUTE AUTO 1.73 K/mm3 (0.16-1.47); MONOCYTES PERCENT AUTO 10 % (4-13); Mean Corpuscular HGB Conc 32.5 g/dL (31.5-36.5); Mean Corpuscular Volume 95 fL (80-100); Mean Platelet Volume 12.4 fL (9.1-12.4); NEUTROPHILS ABSOLUTE AUTO 13.92 K/mm3 (1.96-9.15); NEUTROPHILS PERCENT AUTO 83 % (41-73); Platelet Count 177 K/mm3 (150-400); RDW Coefficient Variation 14.4 % (11.7-14.2); RDW Standard Deviation 50.5 fL (35.1-46.3); Red Blood Cell Count 5.49 M/mm3 (4.30-5.90); White Blood Cell Count 16.72 K/mm3 (4.00-11.30)
[2019-11-30 04:21] LABS: Albumin, Blood 2.9 g/dL (3.4-5.0); Anion Gap 6 mmol/L (6-16); Blood Urea Nitrogen 26 mg/dL (8-24); Bun/Creatinine Ratio 31.6 (12.0-20.0); CO2, Blood 27 mmol/L (21-32); Calcium, Blood 8.7 mg/dL (8.5-10.1); Chloride, Blood 113 mmol/L (98-108); Creatinine, Blood 0.82 mg/dL (0.60-1.20); Glomerular Filtration Rate >60 (60-); Glucose, Blood 126 mg/dL (70-99); Potassium, Blood 3.2 mmol/L (3.5-5.5); Sodium, Blood 146 mmol/L (136-145)
--- NOTE | 2019-11-30 06:14 | NUR ---
PT OPENS EYES SPONTANEOUSLY, TRACKS IN ROOM, FOLLOWS COMMANDS ON RUE/RLE. FLACCID ON LEFT SIDE. REMAINS APHASIC. HTN AT TIMES PRN LEBATOLOL GIVEN X3. REMAINS IN A FIB WITH FREQUENT PVCs. WILL CONTINUE TO MONITOR.
--- NOTE | 2019-11-30 08:59 | NUR ---
CARE ASSUMED ASSESSMENT COMPLETED, PT RESTING IN BED WITH NO S/SX DISTRESS NOTED. HR 90'S AFIB WITH MANY PVC'S, BP HYPERTENSIVE, [place]'S NOTIFIED, NEW ORDERS RECEIVED. LS COARSE T/O, PT RECEIVING CPT. RUE FLACCID, RLE WITH PLANTAR REFLEX INTACT, NO OTHER MOVEMENT NOTED. 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 PT TRACKS MOVEMENT, DOES NOT ANSWER QUESTIONS, IS NON VERBAL. PUPILS UNEQUAL BUT REACTIVE. CLINIMIX DECREASED TO 75ML/HR PER DR. PRICE, O2 TITRATED OFF, SPO2 90-95% ON RA. PT REPOSITIONED, ORAL AND CATH CARES PROVIDED. THICK YELLOW SPUTUM SUCTIONED AFTER PT COUGHED. PT PCU STATUS.
--- NOTE | 2019-11-30 12:37 | NUR ---
UPDATE HYDRALAZINE ADMINISTERED FOR HTN WITH GOOD RESULTS. HR 100-120 AFIB/FLUTTER WITH PVC'S. PT SITTING UP IN BED WATCHING TV, NO CHANGES NOTED TO NEURO OR PHYSICAL ASSESSMENTS. PT HAD NEB AND CPT FROM RT, ORAL CARE AND SUCTIONING COMPLETED, THICK STARK SPUTUM SUCTIONED FROM BACK OF THROAT.
--- NOTE | 2019-11-30 18:10 | NUR ---
END OF SHIFT PT RESPONDED WELL TO HYDRALAZINE BUT HR HAS BEEN 100-120 AFIB SINCE LATE MORNING WITH INTERMITTENT AND BRIEF EPISODES OF HR 150'S. NOTIFIED, NEW ORDERS. DOBHOFF PLACED, PLACEMENT CONFIRMED WITH XRAY, COREG ADMINISTERED PER ORDERS. BP 150/80'S MOST OF THE SHIFT. LS REMAIN COARSE, CPT X3 TODAY, SMALL AMOUNTS STARK SPUTUM SUCTIONED FROM BACK OF MOUTH. CLINIMIX CONTINUES TO INFUSE AT 75ML/HR. GOOD URINE OUTPUT, NO BM, BT PRESENT. NEURO ASSESSMENT UNCHANGED FROM THIS MORNING EXCEPT FOR SOME MILD FRUSTRATION/AGITATION THIS EVENING. P/T AT BEDSIDE FOR EVAL EARLIER AND REPORTED THAT PT MOVED R TOES SLIGHTLY ON COMMAND, WAS NOT WITNESSED BY THIS RN. PT NOW UP IN CHAIR, S/O AT BEDSIDE. REPORT TO ONCOMING SHIFT.
--- NOTE | 2019-11-30 18:50 | NUR ---
S/O AT BEDSIDE, PT BECOMING MORE AGITATED, HR 140, PT TRYING TO REACH FOR S/O'S DRINK. THIS RN ASED S/O NOT TO BRING FLUIDS BACK INTO ROOM PT CANNOT DRINK THEM. ASKED IF PT HAVING PAIN, PT INDICATED "NO" WITH HAND SQUEEZES. DR. PRICE CALL REGARDING AGITATION, NO NEW ORDERS AT THIS TIME. S/O LEAVING, WILL CONTINUE TO MONITOR FOR INCREASED AGITATION AND VS CHANGES. LABETOLOL ADMINISTERD, REPORT TO BLEACH BOILER PULLER, PT TO PCU 10.
[2019-12-01 04:05] LABS: BASOPHILS ABSOLUTE AUTO 0.05 K/mm3 (0.00-0.23); BASOPHILS PERCENT AUTO 0 % (0-2); EOSINOPHILS ABSOLUTE AUTO 0.13 K/mm3 (0.00-0.68); EOSINOPHILS PERCENT AUTO 1 % (0-6); Hematocrit 54.7 % (37.0-53.0); Hemoglobin 17.7 g/dL (13.5-17.5); IMMATURE GRAN ABSOLUTE AUTO 0.04 K/mm3 (0.00-0.10); IMMATURE GRAN PERCENT AUTO 0 % (0-1); LYMPHOCYTES ABSOLUTE AUTO 0.99 K/mm3 (0.84-5.20); LYMPHOCYTES PERCENT AUTO 7 % (21-46); MONOCYTES ABSOLUTE AUTO 1.53 K/mm3 (0.16-1.47); MONOCYTES PERCENT AUTO 11 % (4-13); Mean Corpuscular HGB 30.8 pg (26.0-34.0); Mean Corpuscular HGB Conc 32.4 g/dL (31.5-36.5); Mean Corpuscular Volume 95 fL (80-100); Mean Platelet Volume 12.3 fL (9.1-12.4); NEUTROPHILS ABSOLUTE AUTO 11.55 K/mm3 (1.96-9.15); NEUTROPHILS PERCENT AUTO 81 % (41-73); Platelet Count 194 K/mm3 (150-400); RDW Coefficient Variation 14.5 % (11.7-14.2); RDW Standard Deviation 50.2 fL (35.1-46.3); Red Blood Cell Count 5.75 M/mm3 (4.30-5.90); White Blood Cell Count 14.29 K/mm3 (4.00-11.30)
[2019-12-01 04:24] LABS: Anion Gap 7 mmol/L (6-16); Blood Urea Nitrogen 30 mg/dL (8-24); Bun/Creatinine Ratio 33.3 (12.0-20.0); CO2, Blood 24 mmol/L (21-32); Calcium, Blood 9.2 mg/dL (8.5-10.1); Chloride, Blood 116 mmol/L (98-108); Glomerular Filtration Rate >60 (60-); Glucose, Blood 125 mg/dL (70-99); Magnesium, Blood 2.4 mg/dL (1.6-2.4); Phosphorus, Blood 3.7 mg/dL (2.5-4.9); Potassium, Blood 3.4 mmol/L (3.5-5.5); Sodium, Blood 147 mmol/L (136-145)
--- NOTE | 2019-12-01 06:03 | NUR ---
SHIFT SUMMARY PT ALERT MUCH OF SHIFT; TRACKS W/ EYES; RAISES ARM FOR THIS RN TO LOOK AT IV; ELEVATED BP MOST OF SHIFT; HR RANGING 110-130 TOUCHING 150 AT TIMES; HYDRALYZINE ADMINISTERED 1X THIS SHIFT; LABETOLOL 1X; FENTANYL 2X THIS SHIFT; O2 SATS >93 ON RA; LUNG SOUNDS COARSE IN BASES; IRREGULAR RESPIRATIONS; RT TO BEDSIDE FOR CPT; KERR PATENT & DRAINING DK GISELA; PT REASSURED AND REORIENTED FREQUENTLY; CALL LIGHT IN REACH; BED IN LOWEST POSITION; BED ALARM ON; WILL CONTINUE TO MONITOR CLOSELY UNTIL HAND OFF TO DAY SHIFT RN.
--- NOTE | 2019-12-01 11:45 | NUR ---
Assumed care from Kimberlyn OBRIEN. Patient lying in bed with HOB at 20 degrees watching TV and starting CPT by RT. He ciontinues to move left side and no movement to right. He remains non verbal but follows simple commands. He is infusing Clinimix at 75ml's and will be starting TF per dietary soon. He continues to be hypertensive 180's systolic.
--- NOTE | 2019-12-01 14:15 | NUR ---
No neuro changes with patient. Started tube feedings Jevity 1.2 at 25ml/hr with 100ml water flushes q4. Patient continues to move left side freely he does not bother dophoff tube. No other significant changes.
--- NOTE | 2019-12-01 16:15 | NUR ---
Patient on right side and positions self for most part and assist with turning. He has his pivot 1.2 infusing with 100ml water flushes q4 and tolerating well.VS better with systolic 150's. Will let clinimix run out and stop. still non verbal and flaccid to right side, very active with left side.
--- NOTE | 2019-12-01 18:27 | NUR ---
Patient has been turning himself to right side and resting, repositioned him supine and up in bed. TF Pivot 1.2 at 25ml/hr and 100ml water flushes. He is on RA and sats >90%. Remains non verbal and follows minimal commands. Still flaccid to right side.
[2019-12-02 04:03] LABS: BASOPHILS ABSOLUTE AUTO 0.08 K/mm3 (0.00-0.23); BASOPHILS PERCENT AUTO 1 % (0-2); EOSINOPHILS ABSOLUTE AUTO 0.21 K/mm3 (0.00-0.68); EOSINOPHILS PERCENT AUTO 1 % (0-6); Hematocrit 55.9 % (37.0-53.0); Hemoglobin 17.9 g/dL (13.5-17.5); IMMATURE GRAN ABSOLUTE AUTO 0.07 K/mm3 (0.00-0.10); IMMATURE GRAN PERCENT AUTO 1 % (0-1); LYMPHOCYTES ABSOLUTE AUTO 1.33 K/mm3 (0.84-5.20); LYMPHOCYTES PERCENT AUTO 9 % (21-46); MONOCYTES ABSOLUTE AUTO 1.75 K/mm3 (0.16-1.47); MONOCYTES PERCENT AUTO 11 % (4-13); Mean Corpuscular HGB 30.7 pg (26.0-34.0); Mean Corpuscular Volume 96 fL (80-100); Mean Platelet Volume 12.2 fL (9.1-12.4); NEUTROPHILS ABSOLUTE AUTO 11.91 K/mm3 (1.96-9.15); NEUTROPHILS PERCENT AUTO 78 % (41-73); Platelet Count 206 K/mm3 (150-400); RDW Coefficient Variation 14.5 % (11.7-14.2); RDW Standard Deviation 50.8 fL (35.1-46.3); Red Blood Cell Count 5.83 M/mm3 (4.30-5.90); White Blood Cell Count 15.35 K/mm3 (4.00-11.30)
[2019-12-02 04:28] LABS: Albumin, Blood 3.1 g/dL (3.4-5.0); Anion Gap 7 mmol/L (6-16); Blood Urea Nitrogen 40 mg/dL (8-24); Bun/Creatinine Ratio 36.4 (12.0-20.0); CO2, Blood 24 mmol/L (21-32); Calcium, Blood 9.4 mg/dL (8.5-10.1); Chloride, Blood 120 mmol/L (98-108); Glomerular Filtration Rate >60 (60-); Glucose, Blood 118 mg/dL (70-99); Magnesium, Blood 2.4 mg/dL (1.6-2.4); Phosphorus, Blood 3.3 mg/dL (2.5-4.9); Potassium, Blood 3.7 mmol/L (3.5-5.5); Sodium, Blood 151 mmol/L (136-145)
--- NOTE | 2019-12-02 06:37 | NUR ---
SHIFT SUMMARY PT AWAKENS EASILY AND REPOSITIONS SELF IN BED; JEVITY INCREASED TO 40 THIS SHIFT VIA DOBHOFF; BP CONTINUES TO BE ELEVATED; AFLUTTER NOTED ON TELE; KERR PATENT AND DRAINING DK GISELA; NO DISTRESS NOTED; CALL LIGHT IN REACH; BED IN LOWEST POSITION; WILL CONTINUE TO MONITOR CLOSELY UNTIL HAND OFF TO DAY SHIFT RN.
--- NOTE | 2019-12-02 12:40 | NUR ---
ELEVATED HR NOTIFIED MD PRICE OF SUSTAINED HR IN THE 150'S BUMPING UP TO 180'S - ALSO NOTIFIED MD THAT BLOOD PRESSURES HAVE DROPPED - SEE VS. NEW ORDERS FOR MEDICATIONS GIVEN - SEE EMAR.
--- NOTE | 2019-12-02 14:03 | NUR ---
HR REMAINS ELEVATED NOTIFIED MD ALBERT OF CONTINUED ELEVATED HR AND BLOOD PRESSURE TRENDS.
[2019-12-02 15:04] LABS: Base Excess Venous -1.6 mmol/L; Bicarbonate Venous 25.3 mmol/L (24.0-30.0); PCO2 Venous 23.6 mmHg (38-42); PO2 Venous 117 mmHg (38-42); pH Blood Venous 7.55 (7.34-7.37)
--- NOTE | 2019-12-02 17:37 | NUR ---
[facility] CARE NOTE: CONTACTED ANA HINOJOSA - MEDICAL DEC MAKER [phone] Please see prev pal care notes documenting identification of pt's medical surrogate decision maker. Pt's bedside RN contacted me with an update and request to contact family and discuss goals of care and code status. After update obtained from RN and EMR, I called Ana to give her that information. Pt is unable to safely swallow and may be aspirating secretions. His BP, HR, RR and temp have been elevated despite medications to tx. He has dobhoff ng feedings that will need to be converted to gtube feedings if they are to continue. Pt is hyperventilating and has increased respiratory failure. He is less responsive and remains nonverbal. Repeat CT of the head shows ongoing evolution of L middle cerebral artery infarct. I was able to reach Ana at the number listed in Pal Care notes of last week. She was very receptive and appreciative of the call, update and conversation re: code status and current goals of care in light of pt's failure to improve and indicators that he may become critically unstable at this time. She wants to talk to her brother and her dad's SO but will return a call to us with a decision re: code status this evening. I gave her the direct # to the nurses station for PCU where her dad had been transferred to. Ana thought he was still in ICU. Ana states that her brother is comfortable with her making all decisions but she would feel better having a conversation with him first. Support and encouragement offered. I thanked Carol for helping us provide the best care and what her dad would want when he is unable to tell us. We agreed to discuss comfort care further tomorrow if she and/or her brother had more questions. I explained what that was and how it would change the care Ed is receiving currently. She understands that if they decide to change his code status to DNR, all other care and tx will remain unchanged until decided otherwise by family. Plan to f/u by phone with jemima tomorrow. RN and updated on my conversation with Ana and her plan to call back with direction re: code status tonight.
--- NOTE | 2019-12-02 18:04 | NUR ---
PCU DAYSHIFT SUMMARY PATIENT ALERT WITH EYES OPEN AND FOLLOWS SOME COMMANDS - DOES NOT ANSWER ANY QUESTIONS. RESP LABORED AND UNEVEN WITH WOJCIECH WEST RAPID BREATHING NOTED WITH PERIODS OF APNEA T/O SHIFT - DISCUSSED FINDINGS WITH MD PRICE AND RESPIRTORY THERAPY. PATIENT REMAINED AFIB-AFLUTTER T/O SHIFT WITH RATES 110-160'S - PROVIDER NOTED AND CURRENTLY TREATING PER EMAR. HR CURRENTLY AFIB IN THE 90-115'S. NO MOVEMENT NOTED PAIN OR OTHERWISE OF RIGHT LIMBS - NO SPEECH NOTED, DROOLING AND NONVERBAL T/O SHIFT. ORAL CARE PROVIDED AND Q2 TURNS. PATIENT DID HAVE 1 SMALL BOWEL MOVEMENT THIS SHIFT. KERR CATH DRAINING DARK YELLOW URINE. PATIENTS FACE REMAINS FLUSHED AND SKIN OVERAL DIAPHORETIC T/O SHIFT. REDNESS AND OLD HEALED WOUNDS NOTED ON COCCYX AND RIGHT GREAT AND SECOND TOE AMPUTATED (HEALED WITH SCAR). DISCUSSED DNR WITH DAUGHTER, ANA, MICAH VEGA AND PALLIATIVE CARE. SIDE RAILS UP AND PATIENT APPEARS TO NOT REQUIRE ANY NEEDS AT THIS TIME. WILL CONTINUE TO MONITOR AND REPORT TO NOC SHIFT RN.
--- NOTE | 2019-12-02 18:58 | NUR ---
COMFORT CARE THIS RN AND RN SILVIA TAVERAS SPOKE WITH PATIENTS DAUGHTERANA CHRISTINA HAS BEEN EDUCATED BY THIS RN AND PALLIATIVE CARE RN'S RAVIN AND YOVANNY REGARDING COMFORT CARE AND PATIENTS DAUGHTER, ANA, WISHES FOR HER FATHER, THE PATIENT, TO BE COMFORT CARE AT THIS TIME. HEARD BY PHONE BY THIS RN AND SILVIA TAVERAS.
--- NOTE | 2019-12-03 06:21 | NUR ---
SHIFT SUMMARY PT ALERT, TRACKS RN W/ EYES, IS ABLE TO SQUEEZE LEFT HAND; RIGHT SIDE REMAINS FLACCID; TUBE FEEDING DC'D PER COMFORT CARE; CARDIZEM GTT @15; HR 100; ORAL CARE PERFORMED; PT SLEPT SEVERAL HOURS THIS SHIFT; CALL LIGHT IN REACH; BED IN LOWEST POSITION; CONTINUE TO MONITOR UNTIL HAND OFF TO DAY SHIFT RN.
--- NOTE | 2019-12-03 07:29 | NUR ---
ASSUMED PATIENT CARE. PATIENT RESTING COMFORTABLY IN BED, NO SIGNS OF ACUTE DISTRESS, WCTM.
--- NOTE | 2019-12-03 10:00 | NUR ---
PAL CARE COMFORT CARE VISIT - Pt repositioned in bed with three person assist. He had scooted down against the food board. He did not tolerate the brief time lying flat well while we scooted him up in bed. Pt with diaphoretic, juliana complexion, wet cough and raspy wet respirations. HOB elevated as soon as possible. Pt appears to understand instructions and explanations but is non verbal. He squeezed my hand with his left hand frequently and also was hanging on and squeezing his right wrist. I told him I had spoken with his daughter, Svetlana yesterday evening and that she asked me to give him her love. Pt made eye contact at that point. Lengthy case conference with pt's RN and re: clarifying comfort care orders and orders changed per VO from Dr to meet family goals of comfort care. Pt appears uncomfortable and anxious. Discussed prn medications per eMAR with his RN and recommended use of atropine and/or scopolomine patches for assisting with copius secretions and cont use of fentanyl and roxanol for pain and air hunger or increased resp rate/effort. Pt appears to have a sweet demeanor but is unable to communicate. He appears to understand that we are working to make him more comfortable at this time.
--- NOTE | 2019-12-03 10:00 | NUR ---
PATIENT REPOSITIONED, BLANKETS APPLIED, PILLOWS CHANGED IN POSITION FOR COMFORT, ORAL CARE DONE.
--- NOTE | 2019-12-03 10:34 | NUR ---
COMFORT ORDERS AND CARE PLAN CLARIFIED WITH RN & DR. Pt meets EOL/comfort care critera due to his inability to swallow or handle his own secretions without aspirating due to large CVA. His legally identified decision maker, per [place] Law and our policy, that follows [place] law, Marlenina has been updated on his current condition and prognosis for return to PLOF and does not believe her dad would want his life or suffering prolonged by a feeding tube or skilled nursing trach if needed. Svetlana has discussed this with her brother and the pt's significant other prior to making the decision to make her dad a DNR and comfort care due to his multiple, life-threatening & ongoing progression of comorbidities as a result of the stroke. Pt is suffering profound neuro, cardiac and respiratory complications as well as great discomfort. Comfort care visit and assessment to be entered separately.
--- NOTE | 2019-12-03 11:01 | NUR ---
REPORT GIVEN TO TIAN OBRIEN ON MEDICAL.
--- NOTE | 2019-12-03 11:59 | NUR ---
PCU 10 TRANSFER TO [place] [id number]. PT IS AWAKE HOWEVER NONVERBAL. UNABLE TO DETERMINE ORIENTATION, HE IS UNABLE TO FOLLOW COMMANDS EXCEPT TO RAISE L ARM, SQUEEZE FINGERS. R SIDE FLACCID. HE APPEARS ANXIOUS, WHEN QUESTIONED IF HE NEEDS SOMETHING TO HELP HIM RELAX HE SLOWLY NODS YES. WILL GIVE PRN. INCONT OF STOOL ON ARRIVAL, CHANGED. ASSISTED WITH POSITIONING IN BED FOR COMFORT. ORAL CARE PROVIDED.
--- NOTE | 2019-12-03 14:11 | NUR ---
PT CONTINUES NONVERBAL. HE IS RESTLESS, BREATHING IS TACHYPNEIC @ X'S. SKIN IS WARM TO TOUCH, MILDLY DIAPHORETIC. APPEARS UNCOMFORTABLE, SOMEWHAT AGITATED. PASTORAL CARE @ BEDSIDE ATTEMPTING TO SOOTHE/CALM HIM. PRN ROXANOL 20MG GIVEN. PALLIATIVE CARE RN CALL TO CHECK ON HIM, OFFER ASSISTANCE IF NEEDED, WILL REVIEW MEDS, STATE TO PLACE SCOPALMINE PATCH TO DECREASE EXCESS ORAL SECRETIONS. ORAL CARE & SUCTIONING PROVIDED. WILL CONTINUE TO MX.
--- NOTE | 2019-12-03 15:42 | NUR ---
COMFORT CARE VISIT AND CASE CONFERENCES WITH RN AND PT'S ANA HINOJOSA T/C from pt's medical floor RN after transfer. Per RN, pt appears painful, anxious and dyspnic with diaphoresis, elevated resp rate and grimacing. Discussed comfort care medications available per eMar and recommendations given to use Roxanol for resp distress and ativan for anxiety as ordered. Pt may need more frequent Ativan administration ordered 0.5-1.0 mg IV q 4h currently. Also recommended scopolomine patch for increased secretions noted in airway. Comfort care visit made shortly after conversation with RN. Pt is pulling himself to his right side with his strong left arm. He appears comfortable and calm now. Assisted with repositioning and removing heavier blankets as pt cont to be diaphoretic. RN had obtained room fan and turned temp down in room. Spent some time with pt. Gentle massage on left shoulder and back provided. Pt appeared to drop off to sleep. t/c to Ana hinojosa, to check in with her, give update and new room/unit/rn info. Ana was appreciative of call and had a lot of questions and need to express how she is feeling. Spent 30 minutes on phone with her listening, encouraging and thanking her for her love and care for her dad at this time. Ana was not able to reach SO, Marcy at the number Marcy had called her from. I offered to contact and update her if desired and Ana would like us to do that. I obtained two numbers for Marcy and left a voice mail on the one that had a voice mail that identified the business owner/engineer as Marcy Rodriguez. Ana wanted to make sure that Marcy understood the goal of comfort care for her dad and knew about the decision she and her brother made to put him on comfort care last night. If we do not hear back from Marcy today we will try again tomorrow. RN reports that Marcy was in to visit but I missed her during my visits to pt today. Encouraged Ana to call us with any questions decorative engraver apprentice/us for updates any time. Much emotional support and encouragement given to provide self care for herself and her family. Ana expressed gratitude/appreciation for the care her dad has received and is receiving here and also the time staff has taken to talk to her and her brother since her dad was admitted.
--- NOTE | 2019-12-03 16:11 | NUR ---
PT AGAIN APPEARS RESTLESS, SOMEWHAT AGITATED. THRASHING L ARM & LEG. RESP RATE APPROX 48. PRN ROXANOL 20MG GIVEN. SKIN CONTINUES DIAPHORETIC, FAN PROVIDED, HE HAS KICKED OFF SHEET/BLANKET. ORAL SECRETIONS SX'D, ORAL CARE PROVIDED. WILL CONTINUE TO MX.
--- NOTE | 2019-12-03 17:06 | NUR ---
PT S/O FRIEDA HERE TO SEE HIM. PALLIATIVE CARE RN UP TO ANSWER HER QUESTIONS, CONCERNS. PT CONTINUES SOMEWHAT RESTLESS HOWEVER IMPROVED. CONTINUES UNABLE TO COMMUNICATE/EXPRESS HIMSELF. OPENS EYES TO VERBAL STIM. R/R CONTINUES ELEVATED APPROX 28-32, WILL CONT TO MX & MEDICATE FOR PAIN/AIR HUNGER, PROVIDE COMFORT CARE.
--- NOTE | 2019-12-03 17:10 | NUR ---
THIRD COMFORT CARE VISIT TODAY AND MEETING WITH SO. Patients SO, Marcy arrived to visit. Pt's jemima had not been able to reach Marcy last night at the only number she had for her to update her on changes with pt's condition and goals of care. Marcy was updated and her questions answered. She was appropriately tearful and upset at news that pt is not improving and that he was receiving EOL care at this time. Encouraged her to spend time with pt as she would like and to maintain contact with Svetlana. She will call her and get the correct number to Svetlana. Time spent listening and supporting Marcy, Patient Educator visit offered and informed her that our PC Patient Educator had been visiting pt since his admission a week ago. Marcy is familiar with other [facility] nurses working the rest of the week and I encouraged her to call us with any questions or concerns. Outlined what comfort care meant and approach of medicating for comfort but allowing a natural . Marcy spoke of pt's significant health issues prior to this and that at the time the stroke happened, "knowing it was bad." Returned to pt's room where he is resting and sleeping peacefully after being medicated with Roxanol. Pt's respiratory rate continues to be in the 30's even with medication but he did not appear to be in distress as he had earlier in the day. [facility] to visit daily for s/s management and support.
--- NOTE | 2019-12-03 17:23 | NUR ---
Spiritual care note: Mr. Garcia was in a restless sleep. He opens eyes to touch, but was non-verbal. RN medicated for pain. I sat bedside him speaking words of comfort, holding his hand. I will remain available.
--- NOTE | 2019-12-03 18:44 | NUR ---
CONTINUING RESTLESSNESS, APPARENT AIRHUNGER w R/R UP TO >48 @ X'S. EXCESS UPPER AIRWAY SECRETIONS REQUIRE FREQUENT SX/ORAL CARE. PRN ROXANOL GIVEN. WILL CONTINUE TO MX & PROVIDE COMFORT CARE.
--- NOTE | 2019-12-03 20:10 | NUR ---
PT RESTLESS WITH RAPID RESP GRIMACES . ORAL SUCTION & MEDICATING FOR PAIN ANXIETY DYSPNEA.
--- NOTE | 2019-12-03 23:22 | NUR ---
54 year old MAle post stroke has some nonverbal responses. Moves lt side well. Rt side flaccid. PT on room air HOB up allows oral suction PRN. NPO with aspiration risk. PT was started on comfortmeasures & needs IV access has lt upper arm powerglide intact. PT has rapid respirations at times appears restless. Moving towards right with bed alarm on. repostioned frequently. Godfrey cath patent drains clear yellow urine. Ativan & roxinol helpful to decrease air hunger s/sx pain. Dusky cool extremities but PT undresses and appears to be warm. Continue comfort care, fall precautions
--- NOTE | 2019-12-04 04:23 | NUR ---
PT continues with nonverbal status after stroke. Keeps eyes closed. HAs intermittant apnea, on room air. Intermittant dusky cool limbs chest on room air. Medicated multiple times for air hunger, anxiety, pain with helpful effect. Incont of sujatha borges BM x 1. No family in. PT allows oral care & oral suction. Unable to use call khan. Near [facility] station, fall precautions.
--- NOTE | 2019-12-04 07:16 | NUR ---
BEDSIDE REPORT PT OPENS EYES HOWEVER NONVERBAL, DOES NOT FOLLOW COMMANDS. SKIN WARM, CLAMMY, FLUSHED, DIAPHORETIC. FAN PLACED @ BEDSIDE & BLANKET PULLED BACK. RESP RATE 36-40 w INTERMITTANT APNEAS. MILD RESTLESSNESS @ THIS TIME. COMFORT CARE CONTINUES, WILL MX
--- NOTE | 2019-12-04 10:29 | NUR ---
PT DOES NOT APPEAR PAINFUL @ THIS TIME. RESP RATE APPROX 28, BREATHS DEEP, @ X'S APNEA, HOWEVER NO APPARENT AIRHUNGER. MINIMAL ORAL SECRETIONS SX'D. SKIN CONTINUES WARM/CLAMMY HOWEVER NOT DIAPHORETIC, FAN @ BEDSIDE. KERR CATH PATENT/DRNG CL YELLOW URINE. POSITIONED FOR COMFORT. WILL CONT TO MX.
--- NOTE | 2019-12-04 12:43 | NUR ---
pt flushed with some snorint respirations some arm flopping. Pt former SO at bedside pt girlfriend asked her to get involved since until very recently they had a 16 year realtionship and she managed his medical care. She ahs been in touch with his daughter to assist her. Review of medications, secretions and seizure risk. plan is hospice. Will remain available to family for support.
--- NOTE | 2019-12-04 12:54 | NUR ---
DR PRICE WAS IN TI CHECK ON PT, STATE APPEAR COMFORTABLE @ THAT TIME. PT'S EX OF 19YRS IN TO SIT w HIM. PT CONTINUES NONVERBAL, HE DID OPEN EYES w VERBAL STIM BRIEFLY. PALLIATIVE CARE RN RAVIN IN TO CHECK ON PT WHILE FAMILY IN ROOM, ANSWER QUESTIONS. PT MILDLY RESTLESS @ THIS TIME, FLAILING R ARM SOMEWHAT, PRN ATIVAN 1MG GIVEN.
--- NOTE | 2019-12-04 14:39 | NUR ---
RESP RATE INCREASING 30-40, DEEP w INTERMITTANT APNEA. SOMEWHAT RESTLESS, CONTINUES WARM/FLUSHED. PRN ROXANOL 10MG GIVEN FOR COMFORTCARE/AIRHUNGER. PT S/O & EX LEAVE ROOM, STATE WILL RETURN THIS EVENING.
--- NOTE | 2019-12-04 18:16 | NUR ---
PT INCREASINGLY RESTLESS, MOANING @ X'S, RESP RATE INCREASE TO >40, INTERMITTANT APNEAS. INCREASED UPPER AIRWAY SECRETIONS. PRN ROXANOL 20MG, ATIVAN 1MG & ATROPINE GTTS GIVEN. PT REPOSITIONED FOR COMFORT. COOL TOWEL TO FOREHEAD TO SOOTHE. ORAL SECRETIONS SX'D. FAMILY MEMBER IN TO BE w PT. AFTER MEDICATIONS BREATHINGN SOMEWHAT IMPROVED LESS LABORED, WILL CONTINUE TOMX & PROVIDE COMFORT CARE.
--- NOTE | 2019-12-04 18:27 | NUR ---
Spiritual care note: Ed's ex- and current gf at bedside. Ex on speaker phone with pt's dtr. Ex- dismissive and said [id number]. When asked about spiritual/emotional needs, ex- and gf ignored me. Ed appeared restless, flailing left arm and left foot. I will remain available to family/pt.
--- NOTE | 2019-12-04 18:41 | NUR ---
500ML URINE OUTPUT THIS SHIFT
--- NOTE | 2019-12-04 19:26 | NUR ---
ASSUMED CARE. ED IS LAYING ON THE LEFT SIDE. EX- IS AT BEDSIDE. HE HAS STEADY PACE BREATHING. WAS HAVING SOME RESTLESSNESS EARLIER LONG WITH 30 SEC. APNEA PERIODS. UNRESPONSIVE AT THIS TIME. LUNG SOUNDS ARE RHONCI THROUGHOUT. NO RATTLING NOTED AT THIS TIME. CATHETER IS PATENT AND DRAINING. WILL GIVE PAIN MEDICATION FOR HIS RESTLESS THAT IS COMING AND GOING. WILL MONITOR.
--- NOTE | 2019-12-04 20:03 | NUR ---
ED IS RESTING COMFORTABLY NOW. BREATHING HAS EVEN OUT AND UNLABORED. HE IS NO LONGER GRABING AT HIS FACE OR CONSTANTLY MOVING HIS LEGS AND ARM. EX- HAS GONE HOME FOR THE EVENING. REPOSITIONED. WILL CONTINUE TO PROVIDE CARE AND MONITORING.
--- NOTE | 2019-12-05 04:51 | NUR ---
REPOSITIONED, SUCTION DONE SEVERAL TIMES SO FAR TONIGHT. ORAL CARE DONE. STILL BREATHING HEAVY, WITH AUDIABLE GURGLES. MODELING TO ABDOMIN AND LEGS MORE NOTICABLE.
--- NOTE | 2019-12-05 04:55 | NUR ---
SHIFT SUMMARY: ED HAS BEEN NON-REPONSIVE TO STIMULI. HE DOES OCCATIONALLY MOVE HIS ARM UP AND DOWN, EYES KEPT CLOSE. DOES CLOSE HIS MOUTH WHEN SUCTIONING. NO REPSONSE WHEN REPOSITIONING. GAVE PAIN MEDS X1 20MG AT START OF SHIFT FOR RESTLESSNESS. ATROPINE DROPS X2 FOR SECREATIONS. HAVE SUCTIONED HIM EVERY TIME I WENT INTO THE ROOM. RESP HAVE BEEN AVERAGING 20-22 WITH PERIODS OF APNEA 30 SECONDS. ORAL CARE PROVIDED SEVERAL TIMES. CATHETER REMAINED PATENT AND DRAINING. LUNG SOUNDS RHONCI. MODLING NOTED TO ABDOMIN AND LEGS. BED ALARM REMAINED ON. BED IN LOW POSITION. WILL CONTINUE TO MONITOR TILL DAY SHIFT ARRIVES.
--- NOTE | 2019-12-05 06:41 | NUR ---
ARRIVED TO ROOM AROUND 0540, THE PATIENT HAD RAPID BREATHING AND SIGNS OF AIR HUNGER. SUCTIONED MODERATE AMOUNT OF SECREATIONS. REPOSITIONED HIM MORE IN A SITTING POSITION TO HELP. GAVE HIM ATROPINE DROPS AND ROXINAL TO SEE IF THAT WOULD HELP AROUND 0545. HE OPENED HIS EYES PARTLY BUT NO RESPONSE. BREATHING REMAINED THE SAME BUT RATTLING WAS MORE PRONOUNCED, HE WAS RESTLESS SLIGHTLY MOVING HIS LEFT HAND AND LEG. KIRA OBRIEN CAME IN ROOM AND SUGESTED TO GIVE HIM SOME ATIVAN. ATIVAN 1MG GIVEN AT 0552. LEFT ROOM TO GIVE ANOTHER MED. RETURNED AROUND 0555, HE WAS MOTTLEING UP HIS LEGS, BACK OF BODY, EARS AND FACE WAS GOING DUSKY. LIPS WERE BLUE. BREATHING REMAINED GASPING. SUCTIONED SECREATIONS AGAIN. HIS BREATHING BEGAN TO SLOW. THEN STOPPED. RADIAL HR FELT TACH THEN SLOWED DOWN TO A STOP. HAD KIRA RN CONFIRM TIME OF AT 0600. INFORMED WIG DRESSERMICAH ANDRADE OF PASSING. CALLED RAÚL EX- AND SPOKE TO HER LETTING HER KNOW AROUND 0620. LEFT MESSAGES FOR ANA DAUGHTER AND FRIEDA GIRLFRIEND TO CALL [facility] AND SPEAK TO THE DAY SHIFT NURSE REGARDING ED. CALLED HOSPIALIST DR. DELVALLE AT 0625, AND INFORMED HIM OF TIME OF . 0630- REMOVED CATHETER AND IV LINE. PLACED HIM IN YELLOW GOWN, CLEANED UP ROOM. AND LAYED HIM FLAT. PLACED LEAF ON THE DOOR.
--- NOTE | 2019-12-05 07:16 | NUR ---
FRIEDA GIRLFRIEND RETURNED CALL. INFORMED HER OF HIS PASSING. STATES SHE MIGHT COME IN AND SEE HIM.
== END 2019-12-05 06:00 | DRG 64 ==
LOC: ER 03:22 → ICUW 05:28 → PCU 11-30 19:12 → MEDS 12-03 11:29
PROVIDERS: Emergency Medicine; Family Medicine; Internal Medicine Critical Care Medicine; ADMIT Internal Medicine
PROC: 0BH17EZ Insertion of Endotracheal Airway into Trachea, Via Natural or Artificial Opening (ICD-10-PCS; principal; 2019-11-26)
PROC: 5A1945Z Respiratory Ventilation, 24-96 Consecutive Hours (ICD-10-PCS; 2019-11-26)
PROC: 0DH68UZ Insertion of Feeding Device into Stomach, Via Natural or Artificial Opening Endoscopic (ICD-10-PCS; 2019-11-26)
PROC: 3E0G76Z Introduction of Nutritional Substance into Upper GI, Via Natural or Artificial Opening (ICD-10-PCS; 2019-11-26)
DX: I63.232 Cerebral infarction due to unspecified occlusion or stenosis of left carotid arteries (principal); I50.21 Acute systolic (congestive) heart failure; J96.01 Acute respiratory failure with hypoxia; R40.2212 Coma scale, best verbal response, none, at arrival to emergency department; Z51.5 Encounter for palliative care; G81.91 Hemiplegia, unspecified affecting right dominant side; I13.0 Hypertensive heart and chronic kidney disease with heart failure and stage 1 through stage 4 chronic kidney disease, or unspecified chronic kidney disease; E87.0 Hyperosmolality and hypernatremia; E87.1 Hypo-osmolality and hyponatremia; I48.20 Chronic atrial fibrillation, unspecified; E87.3 Alkalosis; N18.9 Chronic kidney disease, unspecified; F17.210 Nicotine dependence, cigarettes, uncomplicated; E83.39 Other disorders of phosphorus metabolism; E87.6 Hypokalemia; Z66 Do not resuscitate; R40.2142 Coma scale, eyes open, spontaneous, at arrival to emergency department; R40.2352 Coma scale, best motor response, localizes pain, at arrival to emergency department
CPT/HCPCS: 31500; 31720; 36415; 51702; 70450; 70496; 70498; 71045; 80047; 80048; 80053; 80061; 80069; 81001; 82803; 82947; 83735; 83880; 84100; 84443; 85014; 85025; 85610; 87040; 87070; 87086; 87205; 92526; 92610; 93005; 93010; 93306; 94002; 94003; 94640; 94644; 94667; 94668; 94760; 96365-59; 96367-59; 96368; 96375-59; 96376-59; 97112; 97162; 97530; 99291-25; 99292; A9270-GY; C9113; J0330; J0360; J0696; J1650; J2060; J2250; J2704; J3010; J3475; J3480; J7030; J7060; Q9967